=== PATIENT | female | born 1995 ===

== ENCOUNTER 2017-06-05 09:20 | Emergency (ER) | payer MEDICAID ==
[2017-06-05 09:39] VITALS: BMI 23.8
[2017-06-05 09:41] VITALS: O2SAT 100
[2017-06-05 11:10] LABS: SQUAMOUS EPITHIAL 19 /hpf (0-5); URINE BACTERIA OCC (<OCC); URINE BILIRUBIN NEGATIVE (NEGATIVE); URINE BLOOD 2+ (NEGATIVE); URINE CLARITY Hazy (Clear); URINE COLOR Yellow (YELLOW); URINE GLUCOSE (UA) NORMAL (Normal); URINE LEUKOCYTE ESTERASE 2+ Leu/uL (Negative); URINE NITRATE NEGATIVE (NEGATIVE); URINE PROTEIN 2+ mg/dL (NEGATIVE); URINE UROBILINOGEN NORMAL mg/dL (0.2-1.0)
--- NOTE | 2017-06-05 11:27 | C.PDOC ---
History Of Present Illness 21 year old female who presents to the ER with a complaint of breast tenderness , feeling sick in the mornings, and occasional vomiting. She reports occasional epigastric pain after AM vomiting. Patient also reports intermittent burning with urination; LMP was in 03/13. Denies fever, vaginal bleeding, vaginal discharge, or abdominal pain. Time Seen by Provider: 06/05/17 10:09 Chief Complaint (Nursing): Abdominal Pain History Per: Patient History/Exam Limitations: no limitations Onset/Duration Of Symptoms: Days Current Symptoms Are (Timing): Still Present Recent travel outside of the [place]: No Past Medical History Reviewed: Historical Data, Nursing Documentation, Vital Signs Vital Signs: Last Vital Signs Temp 98.0 F 06/05/17 12:12 Pulse 92 H 06/05/17 12:12 Resp 18 06/05/17 12:12 BP 112/72 06/05/17 12:12 Pulse Ox 100 06/05/17 13:01 - Medical History PMH: Migraine Surgical History: No Surg Hx Family History: States: Unknown Family Hx - Social History Hx Alcohol Use: No Hx Substance Use: No - Immunization History Hx Tetanus Toxoid Vaccination: No Hx Influenza Vaccination: No Hx Pneumococcal Vaccination: No Review Of Systems Constitutional: Negative for: Fever ENT: Negative for: Ear Pain, Ear Discharge Cardiovascular: Negative for: Chest Pain, Palpitations, Orthopnea, Edema, Light Headedness Respiratory: Negative for: Shortness of Breath, SOB with Excertion, Wheezing Gastrointestinal: Positive for: Nausea (in morning), Vomiting. Negative for: Abdominal Pain, Diarrhea, Constipation Genitourinary: Positive for: Dysuria. Negative for: Vaginal Discharge, Vaginal Bleeding Musculoskeletal: Positive for: Other (Breast pain) Psych: Negative for: Anxiety, Depression Physical Exam - Physical Exam Appears: Well, Non-toxic, No Acute Distress Skin: Normal Color, Warm, Dry Head: Atraumatic, Normacephalic Eye(s): bilateral: Normal Inspection, PERRL, EOMI Oral Mucosa: Moist Neck: Normal, Supple Chest: Symmetrical (No palpable lumps), No Tenderness, Other (No nipple discharge (chaperoned by mother during breast exam)) Cardiovascular: Rhythm Regular, No Murmur Respiratory: Normal Breath Sounds, No Rales, No Rhonchi, No Wheezing Gastrointestinal/Abdominal: Soft, No Tenderness, No Mass, No Distention Extremity: Normal ROM Neurological/Psych: Oriented x3, Normal Speech, Normal Cognition ED Course And Treatment O2 Sat by Pulse Oximetry: 100 (Room air) Pulse Ox Interpretation: Normal Medical Decision Making Medical Decision Making: POC urine was positive. Spoke to patient and she is aware. I advised patient that breast sensitivity can be normal in but that she needed to follow-up with sql database administrator for mammography if breast pain continues or lump develops. Patient is currently tolerating po in ED and denies abdominal pain. Symptoms likely secondary to "morning sickness." UA shows trace ketones, but patient is tolerating po. Shows blood, leukocytes, wbc and bacteria. Will treat with macrobid. Renal u/s is negative and patient has no flank or abdominal pain. Abdomen is soft NT/ND Will dc with vitamin. Advised to follow up with [facility] for further monitoring of this Disposition - Disposition Referrals: Mert Schilling MD [Staff Provider] - Disposition: HOME/ ROUTINE Disposition Time: 12:56 Condition: GOOD Additional Instructions: Take full course of antibiotics for uti. Take daily vitamin. Follow- up with OB within 2 days for further monitoring of your . Return to ED if condition worsens. Prescriptions: Nitrofurantoin Macrocrystals [Macrobid] 100 mg PO BID #20 cap Vit No.126/Iron/Folic [Classic Tablet] 1 each PO DAILY #30 tablet Instructions: Morning Sickness (ED), (ED), Urinary Tract Infection in (ED) Print Language: CZECH - Clinical Impression Clinical Impression: , UTI (urinary tract infection) - Scribe Statement The provider has reviewed the documentation as recorded by the Scribmelany Horvath All medical record entries made by the Scribe were at my direction and personally dictated by me. I have reviewed the chart and agree that the record accurately reflects my personal performance of the history, physical exam, medical decision making, and the department course for this patient. I have also personally directed, reviewed, and agree with the discharge instructions and disposition.
[2017-06-05 12:13] VITALS: BP 112/72; PULSE 92; RESP 18; TEMP 98
--- NOTE | 2017-06-05 12:43 | US ---
PROCEDURE: Ultrasound of the Kidneys HISTORY: , dysuria COMPARISON: None available. TECHNIQUE: Sonogram of the kidneys. FINDINGS: RIGHT KIDNEY: Measures: 10.9 cm. Normal in size, contour and echogenicity. No stone, solid mass lesion or hydronephrosis visualized. LEFT KIDNEY: Measures: 11.6 cm. Normal in size, contour and echogenicity. No stone, solid mass lesion or hydronephrosis visualized. OTHER FINDINGS: Urinary bladder nondistended at the time of this examination. IMPRESSION: Unremarkable renal sonogram.
== END 2017-06-05 13:14 | disposition home or self-care (01) ==
LOC: C.ER 09:20
DX: O23.40 Unspecified infection of urinary tract in pregnancy, unspecified trimester (principal); Z3A.00 Weeks of gestation of pregnancy not specified